=== PATIENT | female | born 1975 | race Caucasian/White ===

== ENCOUNTER 2024-09-29 09:27 | Emergency (ER) | payer OTHER, SELFPAY ==
--- NOTE | ~2024-09-29 | XR_ITS ---
EXAMINATION: XR foot LT min 3V DATE: 09/29/2024 09:54 INDICATION: Pain at the distal left fifth metatarsal TECHNIQUE: Dorsoplantar, two oblique and lateral views of the left foot were obtained. COMPARISON: None. FINDINGS: Alignment is normal. No fracture. Joint spaces are normal. No cortical erosions or periosteal reactio n. Nonspecific focal soft tissue swelling about the head of the fifth metatarsal. No radiopaque forei gn bodies or soft tissue gas. IMPRESSION: 1. No osseous abnormality. Reviewed, dictated and finalized at location A. IMPRESSION: 1. No osseous abnormality.
--- NOTE | 2024-09-29 09:29 | ED.LOWEXIN ---
HPI - Extremity Injury (Lower) General Chief Complaint: Extremity Injury, Lower Stated Complaint: Left foot injury Time Seen by Provider: 09/29/24 09:29 Source: patient Mode of arrival: ambulatory Limitations: no limitations History of Present Illness HPI Narrative: Hortencia is a 49-year-old female patient presenting to the clinic today with complaints of left foot pain/injury x6 weeks. She reports 6 weeks ago she was walking up a hill after swimming and felt pain over the distal 5th metatarsal of the left foot. Has not taken the medications, ice, or rested the foot. Is concerned about a stress fracture. States that the area swells, becomes more tender, and she has pain with ambulation. Related Data Home Medications ?Medication ?Instructions ?Recorded ?Confirmed ?Last Taken ?Type No Home Medications 08/23/22 08/23/22 Unknown History Allergies Allergy/AdvReac Type Severity Reaction Status Date / Time No Known Allergies Allergy Verified 09/22/22 10:15 Review of Systems Review of Systems: Pertinent positives per HPI. Patient denies any fever, chills, rash, headache, visual changes, dizziness, cough, runny nose, sore throat, shortness of breath, chest pain, palpitations, nausea, vomiting, diarrhea, constipation, abdominal pain, or any urinary issues. [facility] Past Medical History Medical History History of endometrial biopsy 09/22/2022 delivery delivered 2000 Reflux gastritis Family History Family History Father Parkinsons disease Other Diabetes mellitus Social History Social History Smoking status: Never smoker Alcohol intake: never Substance use: never Lack of Transportation: No Lack of Food: Never True Current Housing: I Have Housing Concerned About Future Housing: No Difficulty Paying Gas/Electric Bills: No Difficulty Paying for Meds: No Currently Unemployed: No Education: Bachelor's Degree Difficulty w/ Childcare or Family Care: No Living arrangements: with family Occupation/Education: unemployed Gender identity (if verbalized by the patient): Female Sexual Orientation (if Verbalized by the Patient): Straight or Heterosexual Comments At the time of my signature, I reviewed and agree with the nursing past medical, surgical, social, and family history. There is no relevant family history pertinent to the patient complaint. Exam Narrative: General: Well-developed, well nourished, in no apparent distress Head: Normocephalic, atraumatic. Cardio: Regular rate and rhythm, s1 and s2 normal, no murmur appreciated. Resp: Clear to auscultation bilaterally, no rhonchi, rales, wheezing or rubs. Musculoskeletal: No deformity, tender to palpation over the plantar aspect of the right 5th distal metatarsal, no pain with movement of the 5th toe,grossly normal range of motion, muscle strength strong and equal, peripheral pulse strong, no edema, no cyanosis, normal gait and station Course Course Emergency Course: Portions of this record may have been created with voice recognition software. Level of Care: Express Care Visit Vital Signs Vital signs: Vital Signs Temperature 36.7 C 09/29/24 09:39 Pulse Rate 54 L 09/29/24 09:39 Respiratory Rate 16 09/29/24 09:39 Blood Pressure 123/70 09/29/24 09:39 Pulse Oximetry 100 09/29/24 09:39 Oxygen Delivery Room Air 09/29/24 09:39 Temperature 36.7 C 09/29/24 09:39 Pulse Rate 54 L 09/29/24 09:39 Respiratory Rate 16 09/29/24 09:39 Blood Pressure 123/70 09/29/24 09:39 Pulse Oximetry 100 09/29/24 09:39 Oxygen Delivery Room Air 09/29/24 09:39 Vital signs reviewed MDM - Extremity Injury (Lower) MDM Narrative Medical decision making narrative: At the time of visit patient is resting comfortably on the exam table. Patient appears to be nontoxic. Complaints of left foot pain/injury x6 weeks. She reports 6 weeks ago she was walking up a hill after swimming and felt pain over the distal 5th metatarsal of the left foot. Has not taken the medications, ice, or rested the foot. Is concerned about a stress fracture. States that the area swells, becomes more tender, and she has pain with ambulation. Diagnostics: X-ray of the left foot was performed. X-rays negative for any sign of fracture or malalignment of the left foot. Plan: I suspect patient has foot pain/strain. Supportive measures were discussed with the patient and they voiced understanding discharge instructions and agrees to treatment plan. Return precautions reviewed Differential Diagnosis Differential diagnosis: Likely fracture of toe and other (Foot fracture, foot sprain, foot contusion, soft tissue injury) Imaging Data Radiologist's impression: ITS Impressions Foot X-Ray 09/29/24 09:59 IMPRESSION: 1. No osseous abnormality. Discharge Plan Discharge Clinical Impression: Acute pain of left foot Patient Disposition: Home Condition: Stable Instructions: Antibiotic Form, Foot Sprain (ED) Additional Instructions: X-rays negative for any fracture or malalignment of the left foot. Does show some non specific focal soft tissue swelling around the head of the 5th metatarsal Rest, ice, elevate, and wear dangelo wrap as directed May take ibuprofen 600 mg 3 times daily for pain x1 week May take Tylenol 650 mg every 6 hours additionally as needed for pain Gradually bear weight No running or sports until healed. Follow up with your PCP if symptoms persist more than 1 week. May follow-up with water resource agent for further evaluation Patient Language: Ukrainian Prescriptions: No Action No Home Medications Follow-up/Referrals: Vivek Gregg DPM [Physician] - 2 Days (Acute foot pain over left 5th distal metatarsal.) Roslyn,HERB Manning [Primary Care Provider] - Time of Disposition: 10:04 Quality NIHSS Nursing Documentation ED NIHSS nursing documentation: reviewed/agree
--- OUTSIDE RECORDS SUMMARY | 2024-09-29 09:30 | XMS_ITS | Continuity of Care Document ---
Author Organization [facility] Address [address] [place] [address] Phone Care Team Providers Care Drilling Manager Name Role Phone Unavailable Unavailable Unavailable Allergies, Adverse Reactions, Alerts Substance Reaction Status Criticality No Known allergies Medications Medication Instructions Dosage Effective Dates (start - stop) Status Comments IBUPROFEN (unknown strength) as needed Not Available - Active GABAPENTIN (unknown strength) Not Available - Active Procedures Procedure Date Glasses Recheck REFRACTION EYE EXAM, NEW PATIENT Advance Directives Directive Yes / No Effective Date File Name Resuscitation Not Answered N/A N/A Life Support Not Answered N/A N/A Intubation Not Answered N/A N/A Antibiotics Not Answered N/A N/A IV Fluid Support Not Answered N/A N/A Tube Feed Not Answered N/A N/A Other Directive N/A N/A WARNING:The information contained in this section is historical and is provided for information only and does not constitute a legal document or any assurance that the information is still accurate. Please verify the information with the deal of the legal document before using it for clinical purposes. Encounters Encounter Description Practice Location Reason(s) For Visit Diagnoses Date Provider Providers Copied on Encounter [facility], [facility] [place], [id number] tel:[phone] [facility] Astigmatism, unspecifiedMyopi a 2 No Information [facility], [facility] [place], [id number] tel:[phone] [facility] MyopiaAstigmatis m, unspecifiedPunct ate keratitis 2 No Information Family History Family Member Type Diagnosis Age At Onset Grandmother Problem (finding) glaucoma Payers Payer name Insurance type Covered constitution party ID Authoriza tion(s) No Information Social History Type Description Quantity Date Captured Comments Alcohol Use Details No Caffeine Use Details Unknown Tobacco Use Status No Information Smoking Status Current every day smoker 2011 Sex Female Chief Complaint And Reason For Visit No Information Reason For Referral Reason For Referral No Information History Of Present Illness Encounter Date Complaint History Of Prese nt Illness No Information Functional Status Date Functional Assessmen t No Information Instructions Date Instruction Additional Infor mation - Return in as scheduled Related to Astigmatism, unspecified Astigmatism, unspeci fied OU - glasses rx change givenpt sat and walked around with trial frame for about 10 minutes. no problems, liked revised srx Related to Astigmatism, unspecified Myopia OU Related to Myopi a Myopia OU - Glasses Rx given. (Rx = Wet MR -0.25). Discussed with patient. 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 Related to Myopia Assessments Type Assessment Date No Information Patient Care Teams Name Effective Dates (start - stop) Status Members No Information
--- OUTSIDE RECORDS SUMMARY | 2024-09-29 09:30 | XMS_ITS | Clinical Summary ---
Author Organization [facility] Address [address] [facility] [address] [place] [address] Phone Care Team Providers Care C4 Planner Name Role Phone Lavon Love MD Unavailable Kerri Mcgowan PAC Primary Care Pro vider Medications fluticasone (FLONASE) 50 MCG/ACT Suspension 2 Sprays by Nasal route daily. Use in each nostril as directed. 1 Bottle 0 08/19/2015 Active Multiple Vitamins-Minera ls (PRESERVISION AREDS 2+MULTI VIT PO) Take by mouth. Active Active Problems Problem Noted Date Diagnosed Date Hiatal hernia 12/08/2016 Encounters Date Type Department Care Team Description 08/08/2024 7:47 AM CDT - 08/08/2024 11:59 PM CDT Hospital Encounter [facility] Mammography [address] [facility] [place] [address] Kerri Mcgowan, BIANCA Discharge Disposition: Discharged to home or Selfcare 08/06/2024 Travel 07/02/2024 Results Follow-Up [facility] - Internal Medicine - [place] [address] [place] [address] Kerri Mcgowan, BIANCA CMP (COMPREHENSIVE METABOLIC PANEL), HEMOGLOBIN A1C W/ ESTIMATED GLUCOSE, LIPID PANEL, Additional followed-up results: 4 from Last 3 Months Immunizations Immunization Administration Dates Next Due Influenza Vaccine, Quadrivalent, PF 03/2022,12/22/2021,12/18/2020, 020,12/11/2018,12/08/2016 TDAP Vaccine 10/06/2015,08/19/2006 Family History Medical History Relation Name Comments Inflammatory Bowel Disease Brother I BS Other-comment Brother Schwannoma No Known Problems Daughter High Cholesterol Father Parkinsonism Father Stroke Father Cancer Maternal Grandfather Colon Diabetes Maternal Grandmother Stroke Maternal Grandmother No Known Problems Mother No Known Problems Paternal Grandfather Heart Disease Paternal Grandmother High Cholesterol Paternal Grandmother Inflammatory Bowel Disease Sister I BS No Known Problems Son 1 No Known Problems Son 2 No Known Problems Son 3 Relation Name Status Comments Brother Alive Daughter Alive Father Maternal Grandfather Maternal Grandmother Mother Alive Paternal Grandfather Paternal Grandmother Sister Alive Son 1 Alive Son 2 Alive Son 3 Alive Social History Tobacco Use Types Packs/Day Years Used Date Smoking Tobacco: Never Passive Smoke Exposure: Never Smokeless Tobacco: Never Tobacco Cessation:Counseling Given: No Alcohol Use Standard Drinks/Week Comments No 0 (1 standard drink = 0.6 oz pur e alcohol) [facility] Utilities Answer Date Recorded In the past 12 months has e [employer], gas, oil, or water [employer] threatened to shut off services in your home? No 06/17/2024 Social Connection and Isolation Panel Answer Date Recorded In a typical week, how many times do you talk on the phone with family, friends, or neighbors? More than three times a week 06/17/2024 How often do you get togethe r with friends or relatives? More than three times a week 06/17/2024 How often do you attend chur ch or nondenominational services? More than 4 times per year 06/17/2024 Do you belong to any clubs o r organizations such as orthodox groups, unions, fraternal or athletic groups, or school groups? Yes 06/17/2024 How often do you attend meet ings of the clubs or organizations you belong to? More than 4 times per year 06/17/2024 Are you , , di vorced, , never , or living with a partner? 06/17/2024 AUDIT-C Answer Date Recorded Q1: How often do you have a drink containing alcohol? Never 06/17/2024 Q2: How many drinks containi ng alcohol do you have on a typical day when you are drinking? Patient does not drink Q3: How often do you have si x or more drinks on one occasion? Never 06/17/2024 Overall Financial Resource Strain (CARDIA) Answe r Date Recorded How hard is it for you to pa y for the very basics like food, housing, medical care, and heating? Not hard at all 06/17/2024 PHQ-2 Answer Date Recorded Total Score - Questions 1-9 0 05/24 [facility] - Occupational Stress Questionnaire Answer Date Recorded Do you feel stress - tense, restless, nervous, or anxious, or unable to sleep at night because your mind is troubled all the time - these days? Not at all 06/17/2024 Exercise Vital Sign Answer Date Recorde d On average, how many days pe r week do you engage in moderate to strenuous exercise (like a brisk walk)? 6 days 06/17/2024 On average, how many minutes do you engage in exercise at this level? 40 min 06/17/2024 Hunger Vital Sign Answer Date Recorded Within the past 12 months, y ou worried that your food would run out before you got the money to buy more. Never true 06/18/19 25 Within the past 12 months, t he food you bought just didn't last and you didn't have money to get more. Never true 06/17/2024 PRAPARE - Transportation Answer Date Re corded In the past 12 months, has l ack of transportation kept you from medical appointments or from getting medications? No 05/23 In the past 12 months, has l ack of transportation kept you from meetings, work, or from getting things needed for daily living? No 06/17/2024 Housing Stability Vital Sign Answer Alessandro e Recorded In the last 12 months, was t here a time when you were not able to pay the mortgage or rent on time? No 06/17/2024 In the past 12 months, how m any times have you moved where you were living? 0 06/17/2024 At any time in the past 12 m [facility], were you homeless or living in a long term (including now)? No 06/17/2024 Education Answer Date Recorded What is the highest level of school you have completed or the highest degree you have received? Bachelor's degree (e.g., BA, AB, BS) 12/11/2019 Sexually Active Control Partners Comments Yes Other Male Comments No Sex and Gender Information Value Date Recorded Sex Assigned at Female 06/18/2024 10:03 AM CDT Legal Sex Female 8:41 PM CDT Gender Identity Female 06/18/2024 10:03 AM CDT Sexual Orientation Straight 06/18/2024 10 :03 AM CDT Last Filed Vital Signs Vital Sign Reading Time Taken Comments Blood Pressure 114/68 06/20/2024 12:50 PM CDT Pulse 84 06/20/2024 12:50 PM CDT Temperature 36.9 C (98.5 F) 06/20/2024 12:50 PM CDT Respiratory Rate 14 03/18/2022 12:41 PM LENS HARDENER Oxygen Saturation 98% 06/20/2024 12:50 PM CDT Inhaled Oxygen Concentration - - Weight 61.2 kg (135 lb) 06/20/2024 12:50 PM CDT Height 167.6 cm (5' 6) 06/20/2024 12:50 PM CDT Body Mass Index 21.79 06/20/2024 12:50 PM CDT Plan of Treatment Upcoming Encounters Date Type Department Care Team (Late st Contact Info) Description 06/28/2025 9:30 AM CDT Office Visit [facility] - Primary Care - [address] [place] [id number] Kerri Mcgowan, BIANCA [address] [place], [place] [id number] Health Maintenance Due Date Last Done Comments Hepatitis B Immunization (1 of 3 - 19+ 3-dose series) 02/02/1992 Cologuard 2018 Immunochemical Fecal Occult Blood 2018 Pneumococcal Immunization (50+ years) (1 of 1 - PCV) 2023 Zoster Immunization (1 of 2) 2023 SARS-COV-2 Immunization ( season) 2023 05/30/2020, 05/02/2020 Pap Smear 12/19/2023 12/18/2020, 12/08/2017 Influenza Immunization (#1) 10/22/202411/21, 12/23/2022, 12/22/2021, Additional history exists Mammogram 08/08/2025 08/08/2024, 07/22, 02/03/2022, Additional history exists Td Immunization Every 10 Years (Adults With 1 Tdap) 10/05/2025 10/06/2015, 08/19/2006 Cervical Cancer Screening (CCS) 12/18/2025 HPV/Cotest 12/18/2025 12/18/2020 Colonoscopy 03/18/2032 03/18/2022, 03/18/2022 Colorectal Cancer Screening 03/18/2032 Respiratory Syncytial Virus (RSV) Immunization (Adult) (1 - 1-dose 75+ series) 02/02/2048 Hepatitis C Virus (HCV) Screening Completed 06/27/2024 Discussion re Starting/Frequency of Mammograms Discontinued 08/08/2024, 08/09/2023, 02/03/2022, Additional history exists Human Papillomavirus (HPV) Immunization Aged Out No longer eligible based on patient's age to complete this topic Meningococcal Immunization (ACWY) Aged Out No longer eligible based on patient's age to complete this topic Rotavirus Immunization Aged Out No lo nger eligible based on patient's age to complete this topic Procedures Procedure Name Priority Date/Time Associated Diagnosis Comments NICK SCREENING BILATERAL DIGITAL W CAD W HAROLDO Routine 08/08/2024 8:17 AM CDT Encounter for screening mammogram for breast cancer HEPATITIS C ANTIBODY Routine 06/27/2024 8:24 AM CDT Need for hepatitis C screening test HUMAN PAPILLOMA VIRUS (HPV) 12/18/2020 12:00 AM CDT PATHOLOGY CYTOLOGY GARAGE ATTENDANT 12/18/2020 12:00 AM CDT from Last 3 Months or Most Recently Relevant to Health Maintenance Results * NICK SCREENING BILATERAL DIGITAL W CAD W HAROLDO (08/08/2024 8:17 AM CDT) Anatomical Region Laterality Modality breast Bilateral Mammography 08/08/2024 8:12 AM CDT Narrative 08/09/2024 12:56 PM CDT - NICK SCREENING BILATERAL DIGITAL W CAD W HAROLDO BILATERAL DIGITAL SCREENING MAMMOGRAM 3D/2D WITH CAD WITH MEDIOLATERAL OBLIQUE CRANIOCAUDAL: 08/08/2024 The study was acquired using digital technology and interpreted from soft copy. Current study was also evaluated with ICAD version 7.2. 2D digital mammographic views, as well as 3D digital tomosynthesis were performed in the CC and MLO projections. CLINICAL: Routine screening. Patient has no complaints. No personal history of cancer. No family history of breast cancer. COMPARISONS: Comparison is made to exams dated: 08/09/2023, 02/03/2022, 01/06/2021, and 01/03/2020 [facility]. BREAST TISSUE:The breasts are heterogeneously dense, which may obscure small masses. FINDINGS: There are benign calcifications in the left breast. No significant masses, calcifications, or other findings are seen in either breast. There has been no significant interval change. IMPRESSION: BENIGN There is no mammographic evidence of malignancy. A 1 year screening mammogram is recommended. A letter will be sent to the patient with these results. The patient will be entered into a reminder system with a target due date of 1 year for her next screening exam. Electronically signed by: Linda zepeda/brandon:08/08/2024 17:08:46 Asphalt Plant Worker(s): RT Naina(R)(M), [facility] letter sent: Normal Exam Reading location: [facility] Mammogram BI-RADS: Category 2: Benign Procedure Note Linda Block MD - 08/09/2024 - NICK SCREENING BILATERAL DIGITAL W CAD W HAROLDO BILATERAL DIGITAL SCREENING MAMMOGRAM 3D/2D WITH CAD WITH MEDIOLATERAL OBLIQUE CRANIOCAUDAL: 08/08/2024 The study was acquired using digital technology and interpreted from soft copy. Current study was also evaluated with ICAD version 7.2. 2D digital mammographic views, as well as 3D digital tomosynthesis were performed in the CC and MLO projections. CLINICAL: Routine screening. Patient has no complaints. No personal history of cancer. No family history of breast cancer. COMPARISONS: Comparison is made to exams dated: 08/09/2023, 02/03/2022, 01/06/2021, and 01/03/2020 [facility]. BREAST TISSUE:The breasts are heterogeneously dense, which may obscure small masses. FINDINGS: There are benign calcifications in the left breast. No significant masses, calcifications, or other findings are seen in either breast. There has been no significant interval change. IMPRESSION: BENIGN There is no mammographic evidence of malignancy. A 1 year screening mammogram is recommended. A letter will be sent to the patient with these results. The patient will be entered into a reminder system with a target due date of 1 year for her next screening exam. Electronically signed by: Linda Block M.D. ab/brandon:08/08/2024 17:08:46 Asphalt Plant Worker(s): RT Naina(R)(M), [facility] letter sent: Normal Exam Reading location: [facility] Mammogram BI-RADS: Category 2: Benign Kerri Mcgowan [facility] IMG MAMMO ORDERAB LES Final Result * HEPATITIS C ANTIBODY (06/27/2024 8:24 AM CDT) hepatitis C antibody 0.30 <1 S/CO 06/28/2024 3:40 PM CDT [facility] Comment: Signal/Cutoff ratio < 0.79 is Nondetected Signal/Cutoff ratio 0.80-0.99 is Grayzone Signal/Cutoff ratio > 0.99 is Detected Supplemental assays are recommended if signal/cutoff ratio is >/=1.00. Signal/cutoff ratio result >/= 5.00 is 97% predictive of positivity for recombinant immunoblot assay (RIBA) and will be reported to the [place] Department of Public Health as required. Blood Venipuncture / Unknown 06/27/2024 8:24 AM CDT 06/27/2024 8:24 AM CDT us Kerri Mcgowan PAC CHEMISTRY ORDERAB LES Final Result Performing Organization Address City/[facility] Co de Phone Number [facility] [address] [place] [place] [address], [place] * PATHOLOGY CYTOLOGY GARAGE ATTENDANT (12/18/2020 12:00 AM CDT) 12/18/2020 us Not On File Provider PATHOLOGY/CYTOLOGY ORDERABL ES Final Result SCAN * HUMAN PAPILLOMA VIRUS (HPV) (12/18/2020 12:00 AM CDT) 12/18/2020 us Not On File Provider LAB SEND OUTS Final Resul t Performing Organization Address City/[facility] Co de Phone Number SCAN from Last 3 Months or Most Recently Relevant to Health Maintenance Insurance [facility] Care Teams C4 Planner Relationship Specialty Start Date End Date Kerri Mcgowan PAC [address] [address] PCP - General Physician Air Marshal 06/20/24 Lavon Love MD [address] [place] [address] Consulting Physician Colon and Rectal Surgery 01/11/22
--- OUTSIDE RECORDS SUMMARY | 2024-09-29 09:33 | XMS_ITS | Continuity of Care Document ---
Author Organization [facility] Address [address] [place] [address] Phone Care Team Providers Care Edge Bander Operator Name Role Phone Unavailable Unavailable Unavailable Allergies, [...] Providers Copied on Encounter [facility], [facility] [place], [id number] tel:[phone] [facility] Astigmatism, unspecifiedMyopi a 2 No Information [facility], [facility] [place], [id number] tel:[phone] [facility] MyopiaAstigmatis m, unspecifiedPunct ate keratitis 2 No Information Family History Family Member Type Diagnosis Age At Onset Grandmother Problem (finding) glaucoma Payers Payer name Insurance type Covered republican ID Authoriza tion(s) No Information Social History [...]
[2024-09-29 09:39] VITALS: BP 123/70; PULSE 54; RESP 16; TEMP 36.7; O2SAT 100
== END 2024-09-29 10:08 | disposition home or self-care (01) ==
PROVIDERS: Emergency Provider Nurse Practitioner Family; PCP Physician Assistant
DX: M79.672 Pain in left foot (principal)
CPT/HCPCS: 73630; 99213; G0463